=== PATIENT | male | born 2000 | race Caucasian/White ===

== ENCOUNTER 2018-04-06 03:36 | Emergency (ER) | payer OTHER ==
[~2018-04-06] VITALS: Ht 175.3 cm; Wt 95.5 kg
[2018-04-06 03:40] VITALS: BP 128/59; TEMP 98
[2018-04-06] MEDS ORDERED: ULTRAM 50MG TAB50 MG PO (04:30)
[2018-04-06] MEDS ORDERED: PREDNISONE20 MG PO (04:30)
[2018-04-06 04:44] VITALS: PULSE 93
== END 2018-04-06 04:44 | disposition home or self-care (01) ==
LOC: COL.ER 03:36
DX: M76.52 Patellar tendinitis, left knee (principal); M76.51 Patellar tendinitis, right knee; K21.9 Gastro-esophageal reflux disease without esophagitis
CPT/HCPCS: J7512